=== PATIENT | female | born 1955 | race Caucasian/White ===

== ENCOUNTER 2017-01-21 10:58 | Day surgery (SDC) | payer OTHER ==
[~2017-01-21 10:58] MED LIST: Buffered Lidocaine 0.9% SYRIN* 5 ML/SYR SYRINGE INTRADERM ONE; Dexamethasone IV* 4 MG/ML 1 ML (4 MG) IV SLOW PU ONE; Famotidine IV* 10 MG/ML 2 ML (20 mg) IV ONE
[2017-01-21] MEDS ORDERED: Famotidine IV* 10 MG/ML 2 ML (20 mg) ONE (11:22)
[2017-01-21] MEDS ORDERED: Buffered Lidocaine 0.9% SYRIN* 5 ML/SYR SYRINGE ONE (11:22)
[2017-01-21] MEDS ORDERED: Dexamethasone IV* 4 MG/ML 1 ML (4 MG) ONE (11:22)
--- NOTE | 2017-01-21 12:39 | RAD ---
Indication: Post lung biopsy one week ago. Assess for pneumothorax prior to surgical procedure. Comparison: January 09, 2017 CT and chest radiograph. Technique: Upright AP 1215 hours Report: Negative for pneumothorax. Unchanged approximate 2.3 cm LEFT upper lobe mass. Minimal bibasilar subsegmental atelectasis. Negative for pleural effusions. Upper normal heart size. Unremarkable mediastinal contours. IMPRESSION: Negative for pneumothorax.
[2017-01-21] MEDS ORDERED: Succinylcholine* 20 MG/ML 10 ML VIAL ONE (12:50)
[2017-01-21] MEDS ORDERED: Propofol* 10 MG/ML 20 ML BTL IV PUSH ONE (12:50)
[2017-01-21] MEDS ORDERED: fentaNYL* 50 MCG/ML 2 ML VIAL (100 MCG VIAL) ONE ×2 (12:50→13:38)
[2017-01-21] MEDS ORDERED: Midazolam* 1 MG/ML 5 ML VIAL (5 MG) ONE (12:50)
[2017-01-21] MEDS ORDERED: Lidocaine 2% PF * 5 ML VIAL ONE (12:50)
[2017-01-21] MEDS ORDERED: EPHEDrine (Pressors)* 50 MG/ML VIAL ONE (13:47)
[2017-01-21] MEDS ORDERED: Ondansetron INJ* 2 MG/ML VIAL ONE (14:16)
[2017-01-21 16:12] VITALS: BP 108/64
--- NOTE | 2017-01-22 06:04 | PRO ---
BRONCHOSCOPY REPORT: DATE OF PROCEDURE: 01/21/17 [facility] PROCEDURE PERFORMED BY: Dr. Walsh PROCEDURE PERFORMED: Bronchoscopy with endobronchial ultrasound-guided fine needle aspiration of mediastinal and hilar nodes for her lung cancer staging. 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 ANESTHESIA: General anesthesia. ANESTHESIOLOGIST: Dr. Stewart. DESCRIPTION OF PROCEDURE: Informed consent was obtained from the patient prior to the procedure after all the risks and benefits were thoroughly explained. The patient recently diagnosed with mucinous adenocarcinoma of the left lung after CT- guided biopsy. He was scheduled for lymph node staging. The patient was intubated with five 8.0 endotracheal tube. Appropriate time-out was performed and agreed on by attending staff prior to the procedure. Flexible Olympus bronchoscope was then inserted through the ET tube for airway inspection. No endobronchial lesions were noted. There was evidence of tracheobronchomalacia with dynamic airway collapse. Bronchoscope was advanced into the right bronchial tree, which was then inspected. No endobronchial lesions were noted. Thin secretions were noted and were suctioned out. Bronchoscope was then advanced into left bronchial tree, which was inspected. No endobronchial lesions were noted, there was evidence of dynamic airway collapse. Bronchoscope was then withdrawn and EBUS bronchoscope was inserted. Station 7 lymph node was accessed with 2 passes. Adequate lymphatic tissue and no malignant cells were noted. Station R4 was accessed with 3 passes. Adequate lymphatic tissue noted, no malignant cells were noted. Station L4 was accessed with 3 passes. Adequate lymphatic tissue was noted with no malignant cells. L10 was accessed with 2 passes. Adequate lymphatic tissue was noted with no malignant cells. Other lymph node stations were scanned with ultrasound, they were not enlarged to be able to biopsy. Procedure was terminated. The patient tolerated the procedure well. [id number]/[facility] #: [id number] [facility]
== END 2017-01-21 16:00 | disposition home or self-care (01) ==
LOC: OR 10:58
PROVIDERS: ATTEND Internal Medicine
DX: C34.92 Malignant neoplasm of unspecified part of left bronchus or lung (principal); I10 Essential (primary) hypertension; E78.5 Hyperlipidemia, unspecified; F41.8 Other specified anxiety disorders
CPT/HCPCS: 71010; 88172; 88173; 88305; J0330; J1100; J2250; J2405; J2704; J3010

== ENCOUNTER 2017-07-31 07:42 | Observation (INO) | payer OTHER ==
--- NOTE | 2017-07-20 16:16 | HP ---
CC: Dr. Patricio Reid; Dr. Theodore Kelly; Dr. Jennifer Tejeda. * ADMISSION HISTORY AND PHYSICAL: DATE OF ADMISSION: 07/31/17. ATTENDING SURGEON: Alea Horn MD * (ELSY Jha, dictating). CHIEF COMPLAINT: Thyroid cancer. HISTORY OF PRESENT ILLNESS: This is a 62-year-old female who was undergoing workup for some sternal chest pain about a year ago that included various imaging studies that showed thyroid nodules. These were in the process of workup when a suspicious left upper lobe lung nodule was also discovered. Ultimately, the patient underwent left upper lobectomy via thoracotomy at [facility] [place] in February of [place] for a node negative adenocarcinoma. She has been seen by Dr. Jennifer Tejeda. She did not require any additional therapy. Followup ultrasound was obtained on 06/11/17 showing multiple bilateral thyroid nodules as well as a greater than 1 cm nodule in the isthmus. Fine-needle aspiration biopsy was performed of dominant nodules in both right and left lobes and in the isthmus on 07/09/17. Pathology revealed benign nodule on the right, but papillary carcinoma present in both the isthmus and left lobe. She has been evaluated by Dr. Kelly and was referred for surgical evaluation. She was seen by Dr. Horn on 07/09/17, at which time her record was reviewed and she was examined. At that time, exam revealed some bruising with the thyroid gland being somewhat large and nodular. There was no palpable cervical or supraclavicular adenopathy. Recommendation was made for total thyroidectomy and after review of the indications, risks, benefits and expected perioperative course, the patient would like to proceed as scheduled with total thyroidectomy. She has prescription for thyroid replacement to start postoperatively from Dr. Kelly. PAST MEDICAL HISTORY: Lung cancer (see above); she has required no additional therapy and has had an uneventful recovery; hypertension, hyperlipidemia, left bundle-branch block (She underwent preoperative workup in January with Dr. Streeter including an echocardiogram and nuclear stress test, both of which were normal by her report). PAST SURGICAL HISTORY: Left upper lobectomy via thoracotomy in February 2017, repair of bladder prolapse with mesh. No reported surgical or anesthesia complications. CURRENT MEDICATIONS: 1. Lisinopril 20 mg once daily. 2. Atorvastatin 40 mg once daily. 3. Prozac 40 mg once daily. 4. Ibuprofen 800 mg p.r.n. (uses approximately once weekly). 5. Glucosamine chondroitin two tablets once daily. 6. Multivitamin once daily. 7. Turmeric 750 mg two tablets once daily. 8. Stool softener 100 mg once daily. DRUG ALLERGIES: None known. FAMILY HISTORY: Negative for thyroid or endocrine neoplasia. There is no known family history of anesthesia problems, bleeding, or clotting disorders. SOCIAL HISTORY: The patient lives alone. Her daughter lives nearby. She works in [employer]. She is a former smoker of one pack per day for 35 to 40 years. She quit in 2013. She denies use of alcohol or other recreational drugs. REVIEW OF SYSTEMS: General: No recent constitutional symptoms or acute illnesses. Her weight has been stable. Cardiovascular: As above. The sternal chest pain that had precipitated her workup has not recurred. Respiratory: She has been doing well since her lobectomy. She did have initial postoperative followup with Dr. Walsh, but was recently seen and followup will be p.r.n. She does not require any supplemental oxygen. She has had a slight cough in the past week or so and was prescribed an antibiotic by her PCP, though elected not to initiate it and has been improving on her own. She will monitor symptoms and contact us if there are any changes. GI: No problems reported. Colonoscopy done within the past year with removal of benign polyps. : No problems reported. PHARMACY MESSENGER: She is up-to-date this year for both pelvic exam with Pap smear and breast exam and mammogram all reportedly normal. Endocrine: No diabetes or thyroid dysfunction reported. PHYSICAL EXAMINATION GENERAL: Well-nourished, well-developed female, in no acute distress. VITAL SIGNS: Height 5 feet 4 inches, weight 177 pounds by history. Blood pressure 116/68, pulse 68, respirations 16. HEENT: Pupils equal and round, reactive. EOMs intact. No conjunctival pallor. Oropharynx, she has full upper and lower dentures. No intraoral lesions. Mucous membranes moist. NECK: As per Dr. Horn's exam noted above. The ecchymosis has resolved. There is nodularity of the thyroid bilaterally. LUNGS: Clear to auscultation. No wheezes. There is a well-healed left subscapular incision as well as former chest tube site. HEART: Regular rate and rhythm. No murmur noted. ABDOMEN: Soft, nontender to palpation. No palpable masses or organomegaly. GENITALIA: Not done. RECTAL: Not done. BACK: No spinous process or CVA tenderness. EXTREMITIES: No edema. NEUROLOGICAL: Grossly intact. SKIN: Warm and dry. No suspicious rashes or lesions. IMPRESSION: Papillar thyroid cancer. PLAN: Total (bilateral) thyroidectomy. A prescription was e-sent to her pharmacy for hydrocodone/APAP elixir. She has thyroid replacement to initiate postoperatively from Dr. Kelly's office. ELSY JHA [id number]/[facility] #: [id number] MARIANGEL
[~2017-07-31 07:42] MED LIST changes: +Acetaminophen IV 1GM/100ML * 1,000 MG/100 ML VIAL IVPB ONE; -Dexamethasone IV* 4 MG/ML 1 ML (4 MG) IV SLOW PU ONE
[2017-07-31] MEDS ORDERED: Famotidine IV* 10 MG/ML 2 ML (20 mg) ONE (07:59)
[2017-07-31] MEDS ORDERED: Acetaminophen IV 1GM/100ML * 100 ML ONE (08:05)
[2017-07-31] MEDS ORDERED: CALCIUM GLUCONATE* 1 GM/10 ML VIAL (in Pyxis) ONE ×2 (08:37→08:38)
[2017-07-31] MEDS ORDERED: Calcium CHLORIDE 10% SYRINGE* 1 GM/10 ML ONE (08:37)
[2017-07-31] MEDS ORDERED: Lidocaine 2% PF * 5 ML VIAL ONE (08:39)
[2017-07-31] MEDS ORDERED: Midazolam* 1 MG/ML 2 ML VIAL (2 MG) ONE (08:39)
[2017-07-31] MEDS ORDERED: Propofol* 10 MG/ML 20 ML BTL IV PUSH ONE (08:39)
[2017-07-31] MEDS ORDERED: fentaNYL* 50 MCG/ML 2 ML VIAL (100 MCG VIAL) ONE ×2 (08:39→12:25)
[2017-07-31] MEDS ORDERED: Bupivacaine 0.25% SDV* 30 ML ONE (08:50)
[2017-07-31] MEDS ORDERED: Rocuronium* 10 MG/ML VIAL ONE (09:19)
[2017-07-31] MEDS ORDERED: Naloxone* 0.4 MG/ML 1 ML VIAL IV PRN (10:10)
[2017-07-31] MEDS ORDERED: PROCHLORPERAZINE INJ 5 MG/ML 2 ML VIAL IV PRN (10:10)
[2017-07-31] MEDS ORDERED: Ondansetron INJ* 2 MG/ML VIAL IV PRN ×2 (10:10→11:46)
[2017-07-31] MEDS ORDERED: Scopolamine 1.5 mg* PATCH TRANSDERM PRN (10:10)
[2017-07-31] MEDS ORDERED: oxyCODONE TAB* 5 MG TAB PO PRN ×2 (10:10)
[2017-07-31] MEDS ORDERED: diPHENhydraMINE IV* 50 MG/ML 1 ml VIAL (BENADRYL) IV PRN (10:10)
[2017-07-31] MEDS ORDERED: Ondansetron INJ* 2 MG/ML VIAL ONE ×2 (10:26→12:28)
[2017-07-31] MEDS ORDERED: EPHEDrine (Pressors)* 50 MG/ML VIAL ONE (10:26)
[2017-07-31] MEDS ORDERED: HYDROmorphone INJ* 1 MG/ML CARPUJECT SYRINGE ONE (11:02)
[2017-07-31] MEDS ORDERED: Neostigmine Methylsulfate* 1 MG/ML 10 ML VIAL (1 mg/ml) ONE (11:38)
[2017-07-31] MEDS ORDERED: Glycopyrrolate IV* 0.2 MG/ML 1 ML VIAL ONE (11:38)
[2017-07-31] MEDS ORDERED: Docusate CAP* 100 MG PO PRN (11:46)
[2017-07-31] MEDS ORDERED: Acetaminophen TAB* 325 MG PO PRN (11:46)
[2017-07-31] MEDS ORDERED: Ketorolac INJ* 30 MG/ML 1 ML VIAL IV PRN (11:46)
[2017-07-31] MEDS ORDERED: HYDROmorphone INJ* 2 MG/ML CARPUJECT SYRINGE IV PRN (11:46)
--- NOTE | 2017-07-31 11:57 | OP ---
Operative Report - Blank - Operative Report Date of Operation: 07/31/17 Note: Pre-op: Papillary thyroid carcinoma Post-op: Same Procedure: Bilateral total thyroidectomy Surgeon: Dr. Horn Local Delivery Truck Driver: ELSY Coleman PA Anesthesia: GETA EBL: <50 cc Fluids: LR 2,000 cc Catheter: None Drains: None Specimen: Thyroid gland Findings: See dictated op note
[2017-07-31] MEDS ORDERED: HYDROmorphone INJ* 2 MG/ML CARPUJECT SYRINGE ONE (12:19)
[2017-07-31] MEDS: HYDROmorphone INJ* 1 MG/ML CARPUJECT SYRINGE IV PRN ×5 (12:20→13:11)
[2017-07-31] MEDS: fentaNYL* 50 MCG/ML 2 ML VIAL (100 MCG VIAL) IV PRN ×2 (12:26→12:53)
[2017-07-31] MEDS: HYDROcodone/ACET. 7.5/325 LIQ* 15 ML UDC PO PRN ×2 (15:22→21:53)
[2017-07-31] MEDS: Calcium Carbonate LIQ* 1,250 MG/5 ML UDC PO SCH (17:14)
--- NOTE | 2017-07-31 20:33 | OP ---
CC: [facility]; Dr. Theodore Kelly; Purvi Villalba NP OPERATIVE REPORT: DATE OF OPERATION: 07/31/17 DATE OF : 55 SURGEON: Alea Horn MD SIGN PAINTER HELPER: ELSY Dobson; ELSY Wilhelm; ELSY Carrillo student. PRE-OP DIAGNOSIS: Thyroid cancer. POST-OP DIAGNOSIS: Thyroid cancer. PROCEDURE: Total thyroidectomy. INDICATIONS: Ms. Chance is a 62-year-old woman recently diagnosed with thyroid cancer, prompting e plan for surgical intervention. DESCRIPTION OF PROCEDURE: She was brought to the operating room, placed on the OR table in the supin e position, and given general anesthesia. The neck was prepped and draped in the usual sterile fashi on. After infiltrating with local anesthetic, an incision was made along the line that had been angelia ed preoperatively. Subcutaneous tissue was then divided with electrocautery through the platysmal mus bob. Flaps were developed superiorly to the thyroid notch and inferiorly to the sternal notch. Then , the strap muscles were divided along the midline and retracted first laterally over the right side of the thyroid gland. The gland was retracted inferiorly and attention was turned to the superior po le were starting from medially and proceeding superiorly and laterally. Individual vessels that appr oached the gland were divided between ligature and clip. Once the upper pole was completely freed up , attention was turned to the lower pole. Here, a LigaSure was used to divide vessels that approach the gland. Then, the middle portion of the gland was attended to retracting the gland medially and a nteriorly. Dissection was begun in the middle portion of the gland. A structure consistent with par athyroid appeared to be an intrathyroid or parathyroid and it was dissected free, preserving its bloo d supply and it was retracted inferiorly. The vessels approaching the gland at the mid portion were carefully dissected free to expose what appear to be a superior pole parathyroid that was intact thro ugh the case and the recurrent laryngeal nerve was eventually identified and appeared to be intact th roughout the case. The gland was then elevated further anteriorly and dissected free from the trache a using electrocautery. Once it was completely free from the trachea on the right side, attention wa s turned to the left side. Here again, attention was turned to the upper pole first where the medial vessels approaching the gland were divided between the external clip and this was continued until th e entire upper pole was freed and then attention was turned to the lower pole. LigaSure was again use d to divide vessels in the inferior portion and then the middle portion was attended too. Individual vessels were divided between clips or with LigaSure until there was adequate clearance to visualize the recurrent laryngeal nerve and structure consistent with the superior pole parathyroid was identif ied and noted to be somewhat roman and inferior pole parathyroid gland that was also seen, but noted to be preserved through the case. The gland was rotated medially and anteriorly and divided from the trachea using electrocautery. The gland was handed off as a specimen. Each side was checked for he mostasis, which was assured with clips and then Surgicel was placed in the thyroid gland on each side . Closure was then accomplished with 3-0 Polysorb was used to close the strap muscles and 4-0 Vicryl was used to close the platysma muscle, and then the skin was closed with 4-0 Prolene in a subcuticul ar fashion. Steri-Strips and a dry fluffy dressings were applied. All sponge and instrument counts were correct. The patient tolerated the procedure well and was transferred to Recovery in a stable c ondition. [id number]/[facility] #: [id number]
[2017-08-01] MEDS: HYDROcodone/ACET. 7.5/325 LIQ* 15 ML UDC PO PRN (07:36)
[2017-08-01 07:43] VITALS: BP 118/57
--- NOTE | 2017-08-01 08:23 | PN ---
Progress Note - Progress Note Date of Service: 08/01/17 Note: Surgery Ms. Chance denies complaints. She has tolerated some food, has minimal pain. Vital Signs 07/31/17 07/31/17 07/31/17 12:00 12:05 12:10 Temperature 97.0 F Pulse Rate 107 103 100 Respiratory 16 16 14 Rate Blood Pressure 172/96 165/81 166/80 (mmHg) O2 Sat by Pulse 99 98 98 Oximetry 07/31/17 07/31/17 07/31/17 12:15 12:20 12:26 Temperature Pulse Rate 99 Respiratory 14 12 14 Rate Blood Pressure 160/88 (mmHg) O2 Sat by Pulse 97 Oximetry 07/31/17 07/31/17 07/31/17 12:27 12:30 12:45 Temperature Pulse Rate 105 99 Respiratory 14 14 14 Rate Blood Pressure 178/86 164/75 (mmHg) O2 Sat by Pulse 97 97 Oximetry 07/31/17 07/31/17 07/31/17 12:53 12:59 13:00 Temperature 98.2 F Pulse Rate 85 Respiratory 14 18 14 Rate Blood Pressure 112/71 (mmHg) O2 Sat by Pulse 97 Oximetry 07/31/17 07/31/17 07/31/17 13:11 13:15 13:38 Temperature 98.1 F Pulse Rate 96 72 Respiratory 14 14 16 Rate Blood Pressure 139/76 118/51 (mmHg) O2 Sat by Pulse 96 98 Oximetry 07/31/17 07/31/17 07/31/17 14:37 15:22 16:02 Temperature 98.4 F Pulse Rate 77 Respiratory 16 16 16 Rate Blood Pressure 138/63 (mmHg) O2 Sat by Pulse 98 Oximetry 07/31/17 07/31/17 07/31/17 16:26 18:34 19:35 Temperature 97.9 F 97.4 F Pulse Rate 90 82 Respiratory 16 16 16 Rate Blood Pressure 130/61 137/54 (mmHg) O2 Sat by Pulse 98 96 Oximetry 07/31/17 07/31/17 07/31/17 21:53 23:12 23:55 Temperature 98.3 F Pulse Rate 66 Respiratory 16 16 16 Rate Blood Pressure 110/52 (mmHg) O2 Sat by Pulse 95 Oximetry 08/01/17 08/01/17 08/01/17 03:24 07:33 07:36 Temperature 98.0 F 98.5 F Pulse Rate 65 59 Respiratory 16 18 18 Rate Blood Pressure 105/50 118/57 (mmHg) O2 Sat by Pulse 96 96 Oximetry 08/01/17 08:00 Temperature Pulse Rate Respiratory 18 Rate Blood Pressure (mmHg) O2 Sat by Pulse 96 Oximetry Incision: clean and dry, no signs infection Neg Chvostek sign. Intake & Output 07/31/17 08/01/17 08/01/17 22:59 06:59 14:59 Intake Total 1740 996 Output Total 600 1400 Balance 1140 -404 Intake: IV Fluids 990 996 LR 990 996 Oral 750 0 Output: Urine 600 1400 Laboratory Results - last 24 hr 07/31/17 07/31/17 08/01/17 12:35 17:52 01:15 Calcium 9.0 9.1 9.5 08/01/17 06:16 Calcium 9.3 POD#1 s/p total thyroidectomy for thyroid cancer, doing well. Can go home on synthroid and lortab elixir and f/u as outpt.
[2017-08-01] MEDS: Calcium Carbonate LIQ* 1,250 MG/5 ML UDC PO SCH (08:55)
[2017-08-01] MEDS ORDERED: Atorvastatin* 20 MG TAB PO SCH (09:00)
[2017-08-01] MEDS ORDERED: Famotidine IV* 10 MG/ML 2 ML (20 mg) IV SLOW PU SCH (09:00)
[2017-08-01] MEDS ORDERED: Famotidine IV * 20 MG in NS 0.9% 100 ML* 100 ML IVPB SCH (09:00)
[2017-08-01] MEDS ORDERED: FLUoxetine CAP* 20 MG PO SCH (09:00)
[2017-08-01] MEDS ORDERED: Lisinopril TAB* 10 MG PO SCH (09:00)
--- NOTE | 2017-08-01 14:12 | DS ---
CC: [facility] DISCHARGE SUMMARY: DATE OF ADMISSION: 07/31/17 DATE OF DISCHARGE: 08/01/17 ADMISSION DIAGNOSIS: Thyroid cancer. DISCHARGE DIAGNOSIS: Thyroid cancer. PROCEDURES DURING HER HOSPITALIZATION: Included total thyroidectomy done on the date of admission. Please see admission history and physical for details of findings at the time of admission. She was admitted after surgery for observation overnight for calcium levels, they stayed stable and in the mo rning she denied complaints and was without signs of infection at the incision and she had a negative Chvostek's sign. She was stable for discharge and given instructions to follow up as an outpatient. She was discharged to home on 08/01/17. [id number]/[facility] #: [id number]
[2017-08-03] MEDS ORDERED: Scopolamine PATCH Remove* 1 NOTE MISC PATCH OFF ONE (10:11)
== END 2017-08-01 09:20 | disposition home or self-care (01) ==
LOC: OR 07:42 → SSU 11:46
PROVIDERS: ADMIT Surgery; ATTEND Surgery
PROC: 0GBJ0ZZ Excision of Thyroid Gland Isthmus, Open Approach (ICD-10-PCS; 2017-07-31)
PROC: 0GTK0ZZ Resection of Thyroid Gland, Open Approach (ICD-10-PCS; principal; 2017-07-31 09:00)
DX: C73 Malignant neoplasm of thyroid gland (principal); I10 Essential (primary) hypertension; E78.5 Hyperlipidemia, unspecified; I44.7 Left bundle-branch block, unspecified; Z85.118 Personal history of other malignant neoplasm of bronchus and lung; Z79.899 Other long term (current) drug therapy; Z87.891 Personal history of nicotine dependence
CPT/HCPCS: 36415; 82310; 88307; 96374; 96375; A9270-GY; G0378; J0610; J1170; J2250; J2405; J2704; J2710; J3010

== ENCOUNTER 2018-07-15 12:29 | Emergency (ER) | payer OTHER ==
--- NOTE | 2018-07-15 12:36 | UC ---
Ear Complaint HPI - HPI Summary HPI Summary: 63 yo female presents with RIGHT ear ordoñez since last night. She tells me that her pain is intermittent and feels sharp and "inside" the ear. Has been feeling well otherwise and denies fever, chills, recent illness, sinus symptoms, cough. No decreased hearing or drainage from the ear. - History of Current Complaint Stated Complaint: EAR PAIN Time Seen by Provider: 07/15/18 12:35 Hx Obtained From: Patient Onset/Duration: Sudden Onset Severity Initially: Moderate Severity Currently: Moderate Pain Intensity: 8 Pain Scale Used: 0-10 Numeric - Allergies/Home Medications Allergies/Adverse Reactions: Allergies Allergy/AdvReac Type Severity Reaction Status Date / Time clarithromycin AdvReac GI Upset Verified 07/15/18 12:39 PMH/Surg Hx/FS Hx/Imm Hx Endocrine History: Hypothyroidism, Dyslipidemia Cardiovascular History: Hypertension Psychological History: Anxiety, Depression - Surgical History Surgical History: Yes Surgery Procedure, Year, and Place: lobectomy, 02/2017, thyroidectomy - Family History Known Family History: Positive: None - Social History Occupation: Employed Full-time Lives: With Family Alcohol Use: None Substance Use Type: None Smoking Status (MU): Former Smoker Amount Used/How Often: 1.5 PPD X 40 YEARS Have You Smoked in the Last Year: No When Did the Patient Quit Smoking/Using Tobacco: 2012 Review of Systems All Other Systems Reviewed And Are Negative: Yes Constitutional: Positive: Negative Skin: Positive: Negative Eyes: Positive: Negative ENT: Positive: Ear Ache Respiratory: Positive: Negative Cardiovascular: Positive: Negative Gastrointestinal: Positive: Negative Neurovascular: Positive: Negative Neurological: Positive: Negative Psychological: Positive: Negative Physical Exam - Summary Physical Exam Summary: GENERAL: NAD. WDWN. No pain distress. SKIN: No rashes, sores, lesions, or open wounds. HEENT: Head: AT/NC Eyes: EOM intact. Conjunctiva clear without inflammation or discharge. Ears: Hearing grossly normal. LEFT TM with mild erythema and bulging. No canal edema or drainage. Right TM intact and WNL. Nose: Nasal mucosa pink and moist. NTTP maxillary and frontal sinus. Throat: Posterior oropharynx without exudates, erythema, or tonsillar enlargement. Uvula midline. NECK: Supple. Nontender. No lymphadenopathy. CHEST: CTAB. No r/r/w. No accessory muscle use. Breathing comfortably and in no distress. CV: RRR. Without m/r/g. Pulses intact. NEURO: Alert. PSYCH: Age appropriate behavior. Triage Information Reviewed: Yes Vital Signs: Vital Signs: Temp Pulse Resp BP Pulse Ox 98.2 F 70 17 120/70 100 07/15/18 12:36 07/15/18 12:36 07/15/18 12:36 07/15/18 12:36 07/15/18 12:36 Vital Signs Reviewed: Yes Ear Complaint Course/Dx - Course Course Of Treatment: Otitis media left - Differential Dx/Diagnosis Provider Diagnosis: Left otitis media Discharge - Sign-Out/Discharge Documenting (check all that apply): Patient Departure All imaging exams completed and their final reports reviewed: No Studies - Discharge Plan Condition: Stable Disposition: HOME Prescriptions: Amoxicillin PO (*) [Amoxicillin 875 MG (*)] 875 mg PO BID #14 tab Patient Education Materials: Ear Infection (ED) Forms: *Work Release Referrals: Purvi Villalba NP [Primary Care Provider] - Additional Instructions: If you develop a fever, shortness of breath, chest pain, new or worsening symptoms - please call your PCP or go to the ED. - Billing Disposition and Condition Condition: STABLE Disposition: Home
[2018-07-15 12:39] VITALS: BP 120/70
== END 2018-07-15 12:45 | disposition home or self-care (01) ==
LOC: UCEAST 12:29
DX: H66.92 Otitis media, unspecified, left ear (principal); I10 Essential (primary) hypertension; Z87.891 Personal history of nicotine dependence; Z88.0 Allergy status to penicillin
CPT/HCPCS: 99211; G0463

== ENCOUNTER 2019-06-17 20:35 | Emergency (ER) | payer OTHER ==
[2019-06-17 22:51] VITALS: BP 129/74
--- NOTE | 2019-06-17 22:52 | ED ---
Neck Pain - HPI Summary HPI Summary: The pt is a 64 yr old female presenting c/o possible foreign body in neck beginning several hours [employer]. She notes that she feels something in her throat and suspects it to be a fishbone. She rates her current pain severity due to the throat pain a 5/10. No aggravating or alleviating factors noted. She also denies any respiratory distress. - History of Current Complaint Chief Complaint: EDForeignBodyEsophag Stated Complaint: FO IN THROAT PER PT Time Seen by Provider: 06/17/19 21:12 Hx Obtained From: Patient Onset/Duration Of Injury/Symptoms: Hours Timing: Constant, Lasting Hours Onset/Duration: Started hours ago, Still Present Severity Initially: Moderate Severity Currently: Moderate Pain Intensity: 5 Pain Scale Used: 0-10 Numeric Location: Discrete At: - throat Aggravating Factors: Nothing Alleviating Factors: Nothing Associated Signs & Symptoms: Positive: Negative - respiratory distress - Allergies/Home Medications Allergies/Adverse Reactions: Allergies Allergy/AdvReac Type Severity Reaction Status Date / Time clarithromycin AdvReac GI Upset Verified 07/15/18 12:39 PMH/Surg Hx/FS Hx/Imm Hx Endocrine/Hematology History: Reports: Hx Thyroid Disease - Multifocal Papillary carcinoma, thyroid nodule Denies: Hx Diabetes, Hx Anemia Cardiovascular History: Reports: Other Cardiovascular Problems/Disorders - CHEST PRESSURE- MD AWARE-HAS NOT HAPPENED RECENTLY Denies: Hx Pacemaker/ICD Respiratory History: Denies: Other Respiratory Problems/Disorders GI History: Denies: Hx Jaundice, Other GI Disorders History: Denies: Other Problems/Disorders Musculoskeletal History: Denies: Other Musculoskeletal History Sensory History: Denies: Hx Contacts or Glasses, Hx Hearing Aid Opthamlomology History: Denies: Hx Contacts or Glasses Neurological History: Denies: Other Neuro Impairments/Disorders Psychiatric History: Reports: Hx Anxiety - ON MEDICATION FOR - Cancer History Cancer Type, Location and Year: left lung w/ lobectomy Hx Chemotherapy: No Hx Radiation Therapy: No - Surgical History Surgery Procedure, Year, and Place: lobectomy, 02/2017, thyroidectomy Hx Anesthesia Reactions: No Infectious Disease History: No Infectious Disease History: Denies: Traveled Outside the [place] in Last 30 Days - Family History Known Family History: Negative: Renal Disease - Social History Alcohol Use: None Substance Use Type: Reports: None Smoking Status (MU): Former Smoker Amount Used/How Often: 1.5 PPD X 40 YEARS Have You Smoked in the Last Year: No Review of Systems Positive: Sore Throat Respiratory: Other - neg - respiratory distress All Other Systems Reviewed And Are Negative: Yes Physical Exam - Summary Physical Exam Summary: Appearance: Well-appearing, Well-nourished, lying in bed comfortable Skin: Warm, dry, no obvious rash Eyes: sclera anicteric, no conjunctival pallor ENT: mucous membranes moist, No subcutaneous emphysema noted, pt is able to swallow without much difficulty Neck: deferred Respiratory: No signs of respiratory distress Cardiovascular: Appears well perfused, pulses are nml Abdomen: deferred Musculoskeletal: Moving all 4 extremities without obvious discomfort Neurological: Awake and alert, mentation is normal, speech is fluent and appropriate Psychiatric: affect is normal, does not appear anxious or depressed Triage Information Reviewed: Yes Vital Signs On Initial Exam: Initial Vitals Temp Pulse Resp BP Pulse Ox 98.2 F 63 20 140/77 96 06/17/19 20:46 06/17/19 20:46 06/17/19 20:46 06/17/19 20:46 06/17/19 20:46 Vital Signs Reviewed: Yes Procedures - Sedation Patient Received Moderate/Deep Sedation with Procedure: No Diagnostics - Vital Signs Vital Signs Temp Pulse Resp BP Pulse Ox 06/17/19 20:46 98.2 F 63 20 140/77 96 - Laboratory Lab Statement: Any lab studies that have been ordered have been reviewed, and results considered in the medical decision making process. - CT Neck CT CT Interpretation Completed By: Radiologist Summary of CT Findings: IMPRESSION: 1. Status post thyroidectomy. 2. Minimal rounded calcifications in the tonsils bilaterally consistent with tonsilliths. 3. Otherwise negative CT soft tissue neck. No linear radiopaque foreign body is identified. Neck Course/Dx - Course Course Of Treatment: The pt is a 64 yr old female presenting c/o possible foreign body in neck beginning several hours [employer]. She notes that she feels something in her throat and suspects it to be a fishbone. A neck CT reveals 1. Status post thyroidectomy.2. Minimal rounded calcifications in the tonsils bilaterally consistent with tonsilliths. 3. Otherwise negative CT soft tissue neck. No linear radiopaque foreign body is identified. Physical exam unremarkable. No lab results to report. Final Dx is esophageal abrasion. Pt will be diagnosed home with PCP follow up. Pt is agreeable with this plan. - Diagnoses Provider Diagnoses: Esophageal abrasion - Physician Notifications Discussed Care Of Patient With: Teresa Pedroza Discharge ED - Sign-Out/Discharge Documenting (check all that apply): Patient Departure - discharge - Discharge Plan Condition: Good Disposition: HOME Patient Education Materials: Esophageal Foreign Body (ED) Referrals: Franklin KOO,Patricio Dougherty [Primary Care Provider] - Additional Instructions: From the CT scan, it looks like the bone passed and is not lodged in the esophagus, nor is there any sign of perforation or injury to the esophagus. Presumably the bone scraped a bit on its way down, but that should heal on its own. Contact Dr. Anshul Valle's office on Thursday if you don't feel like symptoms are improving, but if you are getting a lot better over the weekend you do not need any specific followup. As far as diet, stick to a soft diet over the weekend, stuff that is hard to swallow or very dry is likely to irritate things. You can advance your diet as your symptoms improve. - Billing Disposition and Condition Condition: GOOD Disposition: Home - Attestation Statements Document Initiated by Alexandre: Yes Documenting Scribe: Chau Latham Provider For Whom Celestino is Documenting (Include Credential): Omar Cornejo MD Scribe Attestation: I, Chau Latham, scribed for Omar Cornejo MD on 06/18/19 at 0508. Scribe Documentation Reviewed: Yes Provider Attestation: The documentation as recorded by the Chau ward accurately reflects the service I personally performed and the decisions made by me, Omar Cornejo MD Status of Scribe Document: Viewed
== END 2019-06-17 22:49 | disposition home or self-care (01) ==
LOC: ED 20:35
DX: S27.818A Other injury of esophagus (thoracic part), initial encounter (principal); X58.XXXA Exposure to other specified factors, initial encounter; Y92.9 Unspecified place or not applicable; Z88.1 Allergy status to other antibiotic agents; F41.9 Anxiety disorder, unspecified; Z85.850 Personal history of malignant neoplasm of thyroid; Z85.118 Personal history of other malignant neoplasm of bronchus and lung; Z87.891 Personal history of nicotine dependence; Z90.89 Acquired absence of other organs; Z79.899 Other long term (current) drug therapy
CPT/HCPCS: 70360; 70490; 99282